=== PATIENT | male | born 1955 | race Two or more races ===

== ENCOUNTER 2020-04-23 16:38 | Inpatient (IN) | payer MEDICAID, OTHER, SELFPAY ==
[~2020-04-23] VITALS: Ht 162.6 cm; Wt 66.0 kg
[2020-04-23] MEDS ORDERED: ASCORBIC ACID 500 MG TAB PO ONE (18:15)
[2020-04-23] MEDS ORDERED: ZINC SULFATE 220mg CAP or TAB PO ONE (18:15)
[2020-04-23] MEDS ORDERED: DexAMETHasone SOD PHOS 10MG/1ML VIAL INJ IV ONE (18:15)
[2020-04-23] MEDS ORDERED: AZITHROMYCIN 500MG/ 250ML 250 ML IV ONE (18:15)
[2020-04-23 18:25] LABS: Basophils # (auto) 0.1 10 ^3/uL (0-0.2); Basophils % (auto) 0.5 % (0.0-2.0); Eosinophils # (auto) 0 10 ^3/uL (0-0.8); Eosinophils % (auto) 0.1 % (0.0-7.0); Hematocrit 44.1 % (41.0-53.0); Hemoglobin 15.3 g/dL (13.5-17.5); Lymphocytes # (auto) 0.7 10 ^3/uL (0.4-5.4); Lymphocytes % (auto) 6.7 % (10.0-50.0); Mean Corpuscular Hemoglobin 31.1 pg (28.0-32.0); Mean Corpuscular Hgb Conc. 34.6 g/dL (32.0-36.0); Mean Corpuscular Volume 89.9 fL (80.0-100.0); Monocytes # (auto) 0.8 10 ^3/uL (0-1.3); Monocytes % (auto) 7.3 % (0.0-12.0); Neutrophils # (auto) 9.2 10 ^3/uL (1.6-8.6); Neutrophils % (auto) 85.4 % (37.0-80.0); Nucleated Red Blood Cells % 0.5 %; Red Blood Cells 4.91 10^6/uL (4.5-5.90); Red Cell Distribution Width 13.1 % (11.8-14.3); White Blood Cell 10.8 10^3/uL (4.4-10.8)
[2020-04-23 18:36] LABS: Albumin 2.6 g/dL (3.4-5.0); Calcium 7.7 mg/dL (8.5-10.1); Potassium 3.6 mmol/L (3.5-5.1)
[2020-04-23 18:38] LABS: INR 1.02 (0.9-1.15); Partial Thromboplastin Time 23.6 sec (23.0-31.2)
[2020-04-23 18:42] LABS: BUN/Creatinine Ratio 19.4; Bilirubin, Total 1.2 mg/dL (0.2-1.0); Total Protein 8.1 g/dL (6.4-8.2)
[2020-04-23] MEDS ORDERED: ACETAMINOPHEN 325 MG TAB PO PRN (19:00)
[2020-04-23 22:38] LABS: Urine Amorphous Crystal FEW /hpf (None Seen); Urine Bacteria NONE SEEN /hpf (None Seen); Urine Blood 2+ /uL (Negative); Urine Mucus FEW (None Seen); Urine Specific Gravity 1.031 (1.001-1.035); Urine WBC 4 /hpf (0 - 3)
[2020-04-24] MEDS ORDERED: ONDANSETRON HCL 4 MG/2 ML VIAL IV PRN (02:30)
[2020-04-24] MEDS ORDERED: DOCUSATE SOD 100 MG CAP PO PRN (02:30)
[2020-04-24] MEDS ORDERED: ACETAMINOPHEN 500 MG TAB PO PRN (02:30)
[2020-04-24] MEDS ORDERED: MORPHINE SULFATE INJECTION 2 MG/ML SYRG IV PRN (02:30)
[2020-04-24] MEDS ORDERED: NITROGLYCERIN 0.4 MG SL TAB SL PRN (02:30)
[2020-04-24] MEDS: SODIUM CHLOR 0.9% PF (SALINE LOCK) 10ML VIAL/SYR IV SCH ×3 (06:03→21:40)
[2020-04-24 08:20] LABS: Basophils # (auto) 0 10 ^3/uL (0-0.2); Basophils % (auto) 0.1 % (0.0-2.0); Eosinophils # (auto) 0 10 ^3/uL (0-0.8); Hemoglobin 13.9 g/dL (13.5-17.5); Lymphocytes # (auto) 0.6 10 ^3/uL (0.4-5.4); Lymphocytes % (auto) 6.9 % (10.0-50.0); Mean Corpuscular Hemoglobin 30.5 pg (28.0-32.0); Mean Corpuscular Hgb Conc. 33.8 g/dL (32.0-36.0); Mean Corpuscular Volume 90.3 fL (80.0-100.0); Monocytes # (auto) 0.7 10 ^3/uL (0-1.3); Monocytes % (auto) 7.2 % (0.0-12.0); Neutrophils # (auto) 7.9 10 ^3/uL (1.6-8.6); Neutrophils % (auto) 85.8 % (37.0-80.0); Nucleated Red Blood Cells % 0.1 %; Red Blood Cells 4.54 10^6/uL (4.5-5.90); White Blood Cell 9.2 10^3/uL (4.4-10.8)
[2020-04-24 08:33] LABS: Potassium 3.7 mmol/L (3.5-5.1)
[2020-04-24 08:37] LABS: Albumin 2.3 g/dL (3.4-5.0); BUN/Creatinine Ratio 26.3; Calcium 7.7 mg/dL (8.5-10.1); Magnesium 2.5 mg/dL (1.6-2.6)
[2020-04-24 08:39] LABS: Bilirubin, Total 0.9 mg/dL (0.2-1.0)
[2020-04-24] MEDS: BUDESONIDE (INHALATION) 180 MCG IH IN SCH ×2 (10:00→21:30)
[2020-04-24] MEDS: MULTIPLE VITAMIN TAB PO SCH (10:00)
[2020-04-24] MEDS: AZITHROMYCIN 500MG/D5WorNS 250ml IV SCH (10:08)
[2020-04-24] MEDS: CHOLECALCIFEROL (VITD3) 2,000 UNIT CAP/TAB PO SCH (10:08)
[2020-04-24] MEDS: ZINC SULFATE 220mg CAP or TAB PO SCH (10:08)
[2020-04-24] MEDS: DexAMETHasone SOD PHOS 10MG/1ML VIAL INJ IV SCH (10:08)
[2020-04-24] MEDS: ASCORBIC ACID 1,000 MG TAB PO SCH (10:08)
[2020-04-24] MEDS: ENOXAPARIN SOD 40 MG/0.4 ML SYRINGE SC SCH (10:08)
[2020-04-24] MEDS: FAMOTIDINE (10MG/ML) 2ML VL IV SCH ×2 (10:09→21:45)
[2020-04-24] MEDS: ALBUTEROL SULF HFA 90MCG INH 200DOSE IN PRN (21:30)
[2020-04-25] MEDS: SODIUM CHLOR 0.9% PF (SALINE LOCK) 10ML VIAL/SYR IV SCH ×3 (05:43→21:34)
[2020-04-25 06:30] LABS: Basophils # (auto) 0 10 ^3/uL (0-0.2); Basophils % (auto) 0.2 % (0.0-2.0); Eosinophils # (auto) 0 10 ^3/uL (0-0.8); Hematocrit 39.6 % (41.0-53.0); Hemoglobin 13.4 g/dL (13.5-17.5); Lymphocytes # (auto) 0.7 10 ^3/uL (0.4-5.4); Lymphocytes % (auto) 5.8 % (10.0-50.0); Mean Corpuscular Hemoglobin 30.8 pg (28.0-32.0); Mean Corpuscular Hgb Conc. 33.9 g/dL (32.0-36.0); Mean Corpuscular Volume 90.7 fL (80.0-100.0); Monocytes # (auto) 0.8 10 ^3/uL (0-1.3); Monocytes % (auto) 7.3 % (0.0-12.0); Neutrophils % (auto) 86.7 % (37.0-80.0); Red Blood Cells 4.36 10^6/uL (4.5-5.90); Red Cell Distribution Width 13.3 % (11.8-14.3); White Blood Cell 11.6 10^3/uL (4.4-10.8)
[2020-04-25] MEDS: BUDESONIDE (INHALATION) 180 MCG IH IN SCH ×2 (06:30→22:00)
[2020-04-25] MEDS: ALBUTEROL SULF HFA 90MCG INH 200DOSE IN PRN (06:30)
[2020-04-25 06:53] LABS: Albumin 2.2 g/dL (3.4-5.0); Calcium 7.8 mg/dL (8.5-10.1); Potassium 3.9 mmol/L (3.5-5.1)
[2020-04-25 06:59] LABS: BUN/Creatinine Ratio 32.1; Bilirubin, Total 0.7 mg/dL (0.2-1.0); Total Protein 6.9 g/dL (6.4-8.2)
[2020-04-25] MEDS: DexAMETHasone SOD PHOS 10MG/1ML VIAL INJ IV SCH (09:48)
[2020-04-25] MEDS: AZITHROMYCIN 500MG/D5WorNS 250ml IV SCH (09:48)
[2020-04-25] MEDS: CHOLECALCIFEROL (VITD3) 2,000 UNIT CAP/TAB PO SCH (09:49)
[2020-04-25] MEDS: ZINC SULFATE 220mg CAP or TAB PO SCH (09:49)
[2020-04-25] MEDS: MULTIPLE VITAMIN TAB PO SCH (09:49)
[2020-04-25] MEDS: FAMOTIDINE (10MG/ML) 2ML VL IV SCH ×2 (09:49→21:34)
[2020-04-25] MEDS: ASCORBIC ACID 1,000 MG TAB PO SCH (09:49)
[2020-04-25] MEDS: ENOXAPARIN SOD 40 MG/0.4 ML SYRINGE SC SCH (09:49)
[2020-04-25] MEDS ORDERED: REMDESIVIR PER PHARMACY 0 ML IV SCH (19:00)
[2020-04-25] MEDS ORDERED: cefTRIAXone 1GM/50ML D5W 50 ML IV ONE (19:00)
[2020-04-25] MEDS: ENOXAPARIN SOD 30 MG/0.3 ML SYRINGE SC SCH (21:34)
[2020-04-25] MEDS ORDERED: REMDESIVIR 200 MG in NS 210ml LOADING DOSE ADULT IV ONE (22:00)
[2020-04-26] MEDS: SODIUM CHLOR 0.9% PF (SALINE LOCK) 10ML VIAL/SYR IV SCH ×3 (05:57→22:19)
[2020-04-26 06:50] LABS: Basophils # (auto) 0 10 ^3/uL (0-0.2); Basophils % (auto) 0.1 % (0.0-2.0); Eosinophils # (auto) 0 10 ^3/uL (0-0.8); Hematocrit 39.5 % (41.0-53.0); Hemoglobin 13.6 g/dL (13.5-17.5); Lymphocytes # (auto) 0.9 10 ^3/uL (0.4-5.4); Lymphocytes % (auto) 9.2 % (10.0-50.0); Mean Corpuscular Hemoglobin 31.2 pg (28.0-32.0); Mean Corpuscular Hgb Conc. 34.4 g/dL (32.0-36.0); Mean Corpuscular Volume 90.7 fL (80.0-100.0); Monocytes # (auto) 0.5 10 ^3/uL (0-1.3); Monocytes % (auto) 5.1 % (0.0-12.0); Neutrophils # (auto) 8.1 10 ^3/uL (1.6-8.6); Neutrophils % (auto) 85.6 % (37.0-80.0); Nucleated Red Blood Cells % 0.1 %; Red Blood Cells 4.36 10^6/uL (4.5-5.90); Red Cell Distribution Width 13.4 % (11.8-14.3); White Blood Cell 9.5 10^3/uL (4.4-10.8)
[2020-04-26 07:04] LABS: Albumin 2.1 g/dL (3.4-5.0); Calcium 7.7 mg/dL (8.5-10.1); Magnesium 2.8 mg/dL (1.6-2.6); Potassium 3.8 mmol/L (3.5-5.1)
[2020-04-26 07:18] LABS: Bilirubin, Total 0.6 mg/dL (0.2-1.0); CRP High Sensitivity 6.7 mg/dL (< 0.3); Total Protein 6.8 g/dL (6.4-8.2)
[2020-04-26] MEDS: DexAMETHasone SOD PHOS 10MG/1ML VIAL INJ IV SCH (09:14)
[2020-04-26] MEDS: cefTRIAXone 1GM/50ML D5W 50 ML IV SCH (09:14)
[2020-04-26] MEDS: ASCORBIC ACID 1,000 MG TAB PO SCH (09:15)
[2020-04-26] MEDS: ZINC SULFATE 220mg CAP or TAB PO SCH (09:15)
[2020-04-26] MEDS: AZITHROMYCIN 500MG/D5WorNS 250ml IV SCH (09:15)
[2020-04-26] MEDS: CHOLECALCIFEROL (VITD3) 2,000 UNIT CAP/TAB PO SCH (09:15)
[2020-04-26] MEDS: MULTIPLE VITAMIN TAB PO SCH (09:15)
[2020-04-26] MEDS: ENOXAPARIN SOD 30 MG/0.3 ML SYRINGE SC SCH (09:15)
[2020-04-26] MEDS: FAMOTIDINE (10MG/ML) 2ML VL IV SCH ×2 (09:15→22:19)
[2020-04-26] MEDS ORDERED: ENOXAPARIN SOD 80 MG/0.8ML SYRINGE SC ONE (11:00)
[2020-04-26] MEDS: ERGOCALCIFEROL 50,000 UNIT(1.25MG) CAP PO SCH (11:52)
[2020-04-26] MEDS: REMDESIVIR 100 MG in SODIUM CHL 0.9% 250 ML IV SCH (18:08)
[2020-04-26] MEDS: BUDESONIDE (INHALATION) 180 MCG IH IN SCH ×2 (20:51→22:00)
[2020-04-26] MEDS: ENOXAPARIN SOD 80 MG/0.8ML SYRINGE SC SCH (22:19)
[2020-04-26 23:20] VITALS: BP 124/66
[2020-04-27 06:00] VITALS: BP 139/78
[2020-04-27] MEDS: SODIUM CHLOR 0.9% PF (SALINE LOCK) 10ML VIAL/SYR IV SCH ×3 (06:14→21:38)
[2020-04-27 07:41] LABS: Albumin 2.4 g/dL (3.4-5.0); BUN/Creatinine Ratio 40.6
[2020-04-27 07:44] LABS: Bilirubin, Total 0.9 mg/dL (0.2-1.0); Total Protein 7.1 g/dL (6.4-8.2)
[2020-04-27 09:00] VITALS: BP 145/77
[2020-04-27] MEDS: ZINC SULFATE 220mg CAP or TAB PO SCH (11:00)
[2020-04-27] MEDS: FAMOTIDINE (10MG/ML) 2ML VL IV SCH ×2 (11:00→21:38)
[2020-04-27] MEDS: ASCORBIC ACID 1,000 MG TAB PO SCH (11:00)
[2020-04-27] MEDS: MULTIPLE VITAMIN TAB PO SCH (11:00)
[2020-04-27] MEDS: BUDESONIDE (INHALATION) 180 MCG IH IN SCH ×2 (11:00→19:08)
[2020-04-27] MEDS: cefTRIAXone 1GM/50ML D5W 50 ML IV SCH (11:00)
[2020-04-27] MEDS: CHOLECALCIFEROL (VITD3) 2,000 UNIT CAP/TAB PO SCH (11:00)
[2020-04-27] MEDS: DexAMETHasone SOD PHOS 10MG/1ML VIAL INJ IV SCH (11:00)
[2020-04-27] MEDS: ENOXAPARIN SOD 80 MG/0.8ML SYRINGE SC SCH ×2 (11:00→21:38)
[2020-04-27] MEDS: AZITHROMYCIN 500MG/D5WorNS 250ml IV SCH (12:24)
[2020-04-27 13:00] VITALS: BP 129/81
[2020-04-27] MEDS: REMDESIVIR 100 MG in SODIUM CHL 0.9% 250 ML IV SCH (15:25)
[2020-04-27 17:00] VITALS: BP 109/69
[2020-04-27] MEDS: ALBUTEROL SULF HFA 90MCG INH 200DOSE IN PRN (19:08)
[2020-04-27 21:00] VITALS: BP 125/80
[2020-04-28] MEDS: SODIUM CHLOR 0.9% PF (SALINE LOCK) 10ML VIAL/SYR IV SCH ×3 (06:04→21:37)
[2020-04-28] MEDS: ALBUTEROL SULF HFA 90MCG INH 200DOSE IN PRN (06:23)
[2020-04-28] MEDS: BUDESONIDE (INHALATION) 180 MCG IH IN SCH ×2 (06:23→21:38)
[2020-04-28 06:44] LABS: Basophils # (auto) 0 10 ^3/uL (0-0.2); Basophils % (auto) 0.1 % (0.0-2.0); Eosinophils # (auto) 0 10 ^3/uL (0-0.8); Eosinophils % (auto) 0.5 % (0.0-7.0); Hematocrit 43.1 % (41.0-53.0); Hemoglobin 14.7 g/dL (13.5-17.5); Mean Corpuscular Hemoglobin 31.1 pg (28.0-32.0); Mean Corpuscular Volume 91.4 fL (80.0-100.0); Monocytes # (auto) 0.4 10 ^3/uL (0-1.3); Monocytes % (auto) 3.9 % (0.0-12.0); Neutrophils # (auto) 8.2 10 ^3/uL (1.6-8.6); Neutrophils % (auto) 85.5 % (37.0-80.0); Nucleated Red Blood Cells % 0.1 %; Red Blood Cells 4.72 10^6/uL (4.5-5.90); Red Cell Distribution Width 13.2 % (11.8-14.3); White Blood Cell 9.5 10^3/uL (4.4-10.8)
[2020-04-28 06:53] LABS: Potassium 4.2 mmol/L (3.5-5.1)
[2020-04-28 07:08] LABS: Albumin 2.1 g/dL (3.4-5.0); BUN/Creatinine Ratio 37.5; Bilirubin, Total 0.8 mg/dL (0.2-1.0); Total Protein 6.9 g/dL (6.4-8.2)
[2020-04-28 08:00] VITALS: BP 134/73
[2020-04-28] MEDS: DexAMETHasone SOD PHOS 10MG/1ML VIAL INJ IV SCH (11:01)
[2020-04-28] MEDS: FAMOTIDINE (10MG/ML) 2ML VL IV SCH ×2 (11:01→21:37)
[2020-04-28] MEDS: cefTRIAXone 1GM/50ML D5W 50 ML IV SCH (11:01)
[2020-04-28] MEDS: ASCORBIC ACID 1,000 MG TAB PO SCH (11:02)
[2020-04-28] MEDS: ZINC SULFATE 220mg CAP or TAB PO SCH (11:02)
[2020-04-28] MEDS: CHOLECALCIFEROL (VITD3) 2,000 UNIT CAP/TAB PO SCH (11:02)
[2020-04-28] MEDS: MULTIPLE VITAMIN TAB PO SCH (11:02)
[2020-04-28] MEDS: AZITHROMYCIN 500MG/D5WorNS 250ml IV SCH (11:02)
[2020-04-28] MEDS: ENOXAPARIN SOD 80 MG/0.8ML SYRINGE SC SCH ×2 (11:03→21:37)
[2020-04-28 16:00] VITALS: BP 117/68
[2020-04-28] MEDS: REMDESIVIR 100 MG in SODIUM CHL 0.9% 250 ML IV SCH (16:35)
[2020-04-28 22:00] VITALS: BP 127/76
[2020-04-29 05:00] VITALS: BP 147/89
[2020-04-29] MEDS: SODIUM CHLOR 0.9% PF (SALINE LOCK) 10ML VIAL/SYR IV SCH ×3 (05:15→21:30)
[2020-04-29] MEDS: HYDROcodone-ACET 5/325MG TAB PO PRN ×2 (05:16→21:31)
[2020-04-29 06:47] LABS: Potassium 3.8 mmol/L (3.5-5.1)
[2020-04-29 06:59] LABS: Albumin 2.2 g/dL (3.4-5.0); BUN/Creatinine Ratio 39.7; Bilirubin, Total 0.7 mg/dL (0.2-1.0); Calcium 7.9 mg/dL (8.5-10.1); Total Protein 7.2 g/dL (6.4-8.2)
[2020-04-29 08:00] VITALS: BP 130/70
[2020-04-29] MEDS: cefTRIAXone 1GM/50ML D5W 50 ML IV SCH (09:15)
[2020-04-29] MEDS: FAMOTIDINE (10MG/ML) 2ML VL IV SCH ×2 (11:00→21:30)
[2020-04-29] MEDS: ENOXAPARIN SOD 80 MG/0.8ML SYRINGE SC SCH (11:01)
[2020-04-29] MEDS: DexAMETHasone SOD PHOS 10MG/1ML VIAL INJ IV SCH (11:02)
[2020-04-29] MEDS: MULTIPLE VITAMIN TAB PO SCH (11:03)
[2020-04-29] MEDS: ASCORBIC ACID 1,000 MG TAB PO SCH (11:03)
[2020-04-29] MEDS: ZINC SULFATE 220mg CAP or TAB PO SCH (11:03)
[2020-04-29] MEDS: CHOLECALCIFEROL (VITD3) 2,000 UNIT CAP/TAB PO SCH (11:03)
[2020-04-29] MEDS ORDERED: IOHEXOL 350 MG/ML 100ML IJ ONE (11:40)
[2020-04-29] MEDS: REMDESIVIR 100 MG in SODIUM CHL 0.9% 250 ML IV SCH (15:48)
[2020-04-29 16:00] VITALS: BP 108/70
[2020-04-29 18:33] LABS: INR 1.21 (0.9-1.15); Partial Thromboplastin Time 30.5 sec (23.0-31.2)
[2020-04-29] MEDS: BUDESONIDE (INHALATION) 180 MCG IH IN SCH ×2 (21:31→21:32)
[2020-04-29 23:14] VITALS: BP 113/79
[2020-04-29 23:21] VITALS: BP 117/76
[2020-04-29 23:41] VITALS: BP 104/64
[2020-04-30] VITALS: BP 121/71
[2020-04-30 00:37] VITALS: BP 102/67
[2020-04-30 01:00] VITALS: BP 113/67
[2020-04-30 05:11] VITALS: BP 127/74
[2020-04-30 06:05] LABS: Basophils # (auto) 0 10 ^3/uL (0-0.2); Basophils % (auto) 0.1 % (0.0-2.0); Eosinophils # (auto) 0 10 ^3/uL (0-0.8); Eosinophils % (auto) 0.2 % (0.0-7.0); Hematocrit 41.2 % (41.0-53.0); Hemoglobin 14.1 g/dL (13.5-17.5); Lymphocytes # (auto) 1.1 10 ^3/uL (0.4-5.4); Lymphocytes % (auto) 7.7 % (10.0-50.0); Mean Corpuscular Hgb Conc. 34.3 g/dL (32.0-36.0); Mean Corpuscular Volume 90.5 fL (80.0-100.0); Monocytes # (auto) 0.6 10 ^3/uL (0-1.3); Monocytes % (auto) 4.6 % (0.0-12.0); Neutrophils % (auto) 87.4 % (37.0-80.0); Red Blood Cells 4.56 10^6/uL (4.5-5.90); Red Cell Distribution Width 13.3 % (11.8-14.3); White Blood Cell 13.7 10^3/uL (4.4-10.8)
[2020-04-30 06:23] LABS: Albumin 2.2 g/dL (3.4-5.0); Potassium 3.9 mmol/L (3.5-5.1)
[2020-04-30 06:37] LABS: BUN/Creatinine Ratio 47.1; Bilirubin, Total 0.6 mg/dL (0.2-1.0); CRP High Sensitivity 6.96 mg/dL (< 0.3); Total Protein 6.9 g/dL (6.4-8.2)
[2020-04-30] MEDS: SODIUM CHLOR 0.9% PF (SALINE LOCK) 10ML VIAL/SYR IV SCH ×3 (06:40→21:18)
[2020-04-30 08:00] VITALS: BP 122/73
[2020-04-30] MEDS: cefTRIAXone 1GM/50ML D5W 50 ML IV SCH (08:42)
[2020-04-30] MEDS: ZINC SULFATE 220mg CAP or TAB PO SCH (10:15)
[2020-04-30] MEDS: MULTIPLE VITAMIN TAB PO SCH (10:15)
[2020-04-30] MEDS: FAMOTIDINE (10MG/ML) 2ML VL IV SCH ×2 (10:15→21:17)
[2020-04-30] MEDS: ASCORBIC ACID 1,000 MG TAB PO SCH (10:15)
[2020-04-30] MEDS: DexAMETHasone SOD PHOS 10MG/1ML VIAL INJ IV SCH (10:15)
[2020-04-30] MEDS: CHOLECALCIFEROL (VITD3) 2,000 UNIT CAP/TAB PO SCH (10:16)
[2020-04-30] MEDS: BUDESONIDE (INHALATION) 180 MCG IH IN SCH ×2 (12:58→22:30)
[2020-04-30 16:00] VITALS: BP 119/71
[2020-04-30] MEDS: ENOXAPARIN SOD 40 MG/0.4 ML SYRINGE SC SCH (21:18)
[2020-04-30] MEDS: ALBUTEROL SULF HFA 90MCG INH 200DOSE IN PRN (22:30)
[2020-05-01] VITALS: BP 122/77
[2020-05-01] MEDS: SODIUM CHLOR 0.9% PF (SALINE LOCK) 10ML VIAL/SYR IV SCH ×3 (05:06→21:14)
[2020-05-01 08:00] VITALS: BP 120/82
[2020-05-01] MEDS: cefTRIAXone 1GM/50ML D5W 50 ML IV SCH (08:21)
[2020-05-01] MEDS: BUDESONIDE (INHALATION) 180 MCG IH IN SCH ×2 (10:00→19:20)
[2020-05-01] MEDS: ENOXAPARIN SOD 40 MG/0.4 ML SYRINGE SC SCH ×2 (10:23→21:13)
[2020-05-01] MEDS: FAMOTIDINE (10MG/ML) 2ML VL IV SCH ×2 (10:24→21:13)
[2020-05-01] MEDS: CHOLECALCIFEROL (VITD3) 2,000 UNIT CAP/TAB PO SCH (10:24)
[2020-05-01] MEDS: MULTIPLE VITAMIN TAB PO SCH (10:24)
[2020-05-01] MEDS: ASCORBIC ACID 1,000 MG TAB PO SCH (10:24)
[2020-05-01] MEDS: ZINC SULFATE 220mg CAP or TAB PO SCH (10:24)
[2020-05-01] MEDS: DexAMETHasone SOD PHOS 10MG/1ML VIAL INJ IV SCH (10:24)
[2020-05-01 16:07] VITALS: BP 122/78
[2020-05-01] MEDS: ALBUTEROL SULF HFA 90MCG INH 200DOSE IN PRN (19:20)
[2020-05-01] MEDS: FLORASTOR (S. BOULARDII) 250 MG CAP PO SCH (21:13)
[2020-05-02] VITALS: BP 121/70
[2020-05-02 05:59] LABS: Basophils # (auto) 0 10 ^3/uL (0-0.2); Basophils % (auto) 0.1 % (0.0-2.0); Eosinophils # (auto) 0 10 ^3/uL (0-0.8); Eosinophils % (auto) 0.3 % (0.0-7.0); Hematocrit 38.9 % (41.0-53.0); Hemoglobin 13.3 g/dL (13.5-17.5); Lymphocytes # (auto) 1.4 10 ^3/uL (0.4-5.4); Lymphocytes % (auto) 9.1 % (10.0-50.0); Mean Corpuscular Hemoglobin 30.8 pg (28.0-32.0); Mean Corpuscular Hgb Conc. 34.3 g/dL (32.0-36.0); Mean Corpuscular Volume 89.9 fL (80.0-100.0); Monocytes # (auto) 1.3 10 ^3/uL (0-1.3); Monocytes % (auto) 8.2 % (0.0-12.0); Neutrophils # (auto) 12.7 10 ^3/uL (1.6-8.6); Neutrophils % (auto) 82.3 % (37.0-80.0); Red Blood Cells 4.32 10^6/uL (4.5-5.90); Red Cell Distribution Width 13.1 % (11.8-14.3); White Blood Cell 15.4 10^3/uL (4.4-10.8)
[2020-05-02 06:19] LABS: Albumin 2.3 g/dL (3.4-5.0); Potassium 3.7 mmol/L (3.5-5.1)
[2020-05-02] MEDS: SODIUM CHLOR 0.9% PF (SALINE LOCK) 10ML VIAL/SYR IV SCH ×3 (06:23→21:53)
[2020-05-02 06:26] LABS: BUN/Creatinine Ratio 35.7; Bilirubin, Total 0.6 mg/dL (0.2-1.0); Total Protein 6.3 g/dL (6.4-8.2)
[2020-05-02] MEDS: ALBUTEROL SULF HFA 90MCG INH 200DOSE IN PRN ×2 (07:38→19:00)
[2020-05-02 08:00] VITALS: BP 119/70
[2020-05-02] MEDS: cefTRIAXone 1GM/50ML D5W 50 ML IV SCH (08:37)
[2020-05-02] MEDS: DexAMETHasone SOD PHOS 10MG/1ML VIAL INJ IV SCH (08:39)
[2020-05-02] MEDS: BUDESONIDE (INHALATION) 180 MCG IH IN SCH ×2 (08:39→19:00)
[2020-05-02] MEDS: ZINC SULFATE 220mg CAP or TAB PO SCH (08:40)
[2020-05-02] MEDS: FAMOTIDINE (10MG/ML) 2ML VL IV SCH ×2 (08:40→21:53)
[2020-05-02] MEDS: ENOXAPARIN SOD 40 MG/0.4 ML SYRINGE SC SCH ×3 (08:41→21:53)
[2020-05-02] MEDS: MULTIPLE VITAMIN TAB PO SCH (08:41)
[2020-05-02] MEDS: CHOLECALCIFEROL (VITD3) 2,000 UNIT CAP/TAB PO SCH (08:41)
[2020-05-02] MEDS: ASCORBIC ACID 1,000 MG TAB PO SCH (08:41)
[2020-05-02] MEDS: FLORASTOR (S. BOULARDII) 250 MG CAP PO SCH ×2 (16:00→21:53)
[2020-05-02 16:28] VITALS: BP 114/69
[2020-05-03] VITALS: BP 120/70
[2020-05-03] MEDS: SODIUM CHLOR 0.9% PF (SALINE LOCK) 10ML VIAL/SYR IV SCH ×3 (05:58→21:31)
[2020-05-03] MEDS: BUDESONIDE (INHALATION) 180 MCG IH IN SCH ×2 (07:33→19:02)
[2020-05-03 08:00] VITALS: BP 123/70
[2020-05-03] MEDS: FAMOTIDINE (10MG/ML) 2ML VL IV SCH ×2 (09:19→21:31)
[2020-05-03] MEDS: DexAMETHasone SOD PHOS 10MG/1ML VIAL INJ IV SCH (09:19)
[2020-05-03] MEDS: cefTRIAXone 1GM/50ML D5W 50 ML IV SCH (09:19)
[2020-05-03] MEDS: FLORASTOR (S. BOULARDII) 250 MG CAP PO SCH ×2 (09:20→21:31)
[2020-05-03] MEDS: ASCORBIC ACID 1,000 MG TAB PO SCH (09:20)
[2020-05-03] MEDS: ZINC SULFATE 220mg CAP or TAB PO SCH (09:20)
[2020-05-03] MEDS: MULTIPLE VITAMIN TAB PO SCH (09:20)
[2020-05-03] MEDS: CHOLECALCIFEROL (VITD3) 2,000 UNIT CAP/TAB PO SCH (09:20)
[2020-05-03] MEDS: ENOXAPARIN SOD 40 MG/0.4 ML SYRINGE SC SCH ×2 (09:21→21:31)
[2020-05-03] MEDS: HYDROcodone-ACET 5/325MG TAB PO PRN (09:40)
[2020-05-03] MEDS: VANCOMYCIN HCL 125MG/5ML ORAL SOL PO SCH ×3 (13:11→21:31)
[2020-05-03] MEDS: ERGOCALCIFEROL 50,000 UNIT(1.25MG) CAP PO SCH (13:16)
[2020-05-03 16:00] VITALS: BP 121/76
[2020-05-03] MEDS: ALBUTEROL SULF HFA 90MCG INH 200DOSE IN PRN (19:08)
[2020-05-04] VITALS: BP 112/72
[2020-05-04] MEDS: SODIUM CHLOR 0.9% PF (SALINE LOCK) 10ML VIAL/SYR IV SCH ×3 (05:39→22:51)
[2020-05-04] MEDS: VANCOMYCIN HCL 125MG/5ML ORAL SOL PO SCH ×4 (05:40→22:51)
[2020-05-04 08:00] VITALS: BP 92/54
[2020-05-04] MEDS: ALBUTEROL SULF HFA 90MCG INH 200DOSE IN PRN ×2 (09:00→19:40)
[2020-05-04] MEDS: BUDESONIDE (INHALATION) 180 MCG IH IN SCH ×2 (09:00→19:39)
[2020-05-04] MEDS: DexAMETHasone SOD PHOS 10MG/1ML VIAL INJ IV SCH (09:53)
[2020-05-04] MEDS: FLORASTOR (S. BOULARDII) 250 MG CAP PO SCH ×2 (09:54→22:51)
[2020-05-04] MEDS: ZINC SULFATE 220mg CAP or TAB PO SCH (09:54)
[2020-05-04] MEDS: FAMOTIDINE (10MG/ML) 2ML VL IV SCH ×2 (09:54→22:51)
[2020-05-04] MEDS: ASCORBIC ACID 1,000 MG TAB PO SCH (09:54)
[2020-05-04] MEDS: MULTIPLE VITAMIN TAB PO SCH (09:54)
[2020-05-04] MEDS: CHOLECALCIFEROL (VITD3) 2,000 UNIT CAP/TAB PO SCH (09:54)
[2020-05-04] MEDS: ENOXAPARIN SOD 40 MG/0.4 ML SYRINGE SC SCH ×2 (10:00→22:51)
[2020-05-04 16:00] VITALS: BP 105/71
[2020-05-05] VITALS: BP 115/61
[2020-05-05] MEDS: VANCOMYCIN HCL 125MG/5ML ORAL SOL PO SCH ×4 (05:55→21:01)
[2020-05-05] MEDS: SODIUM CHLOR 0.9% PF (SALINE LOCK) 10ML VIAL/SYR IV SCH ×3 (05:55→21:01)
[2020-05-05 08:00] VITALS: BP 111/63
[2020-05-05] MEDS: FAMOTIDINE (10MG/ML) 2ML VL IV SCH ×2 (09:00→21:01)
[2020-05-05] MEDS: CHOLECALCIFEROL (VITD3) 2,000 UNIT CAP/TAB PO SCH (09:00)
[2020-05-05] MEDS: FLORASTOR (S. BOULARDII) 250 MG CAP PO SCH ×2 (09:00→21:01)
[2020-05-05] MEDS: DexAMETHasone SOD PHOS 10MG/1ML VIAL INJ IV SCH (09:00)
[2020-05-05] MEDS: MULTIPLE VITAMIN TAB PO SCH (09:00)
[2020-05-05] MEDS: ZINC SULFATE 220mg CAP or TAB PO SCH (09:00)
[2020-05-05] MEDS: ASCORBIC ACID 1,000 MG TAB PO SCH (09:00)
[2020-05-05] MEDS: ENOXAPARIN SOD 40 MG/0.4 ML SYRINGE SC SCH ×2 (10:00→21:02)
[2020-05-05] MEDS: metroNIDAZOLE 500 MG TAB PO SCH ×2 (14:00→21:01)
[2020-05-05 16:29] VITALS: BP 112/64
[2020-05-05] MEDS: BUDESONIDE (INHALATION) 180 MCG IH IN SCH (20:31)
[2020-05-05] MEDS: ALBUTEROL SULF HFA 90MCG INH 200DOSE IN PRN (20:32)
[2020-05-06] VITALS: BP 107/73
[2020-05-06] MEDS: metroNIDAZOLE 500 MG TAB PO SCH ×3 (05:53→21:22)
[2020-05-06] MEDS: VANCOMYCIN HCL 125MG/5ML ORAL SOL PO SCH ×4 (05:53→21:21)
[2020-05-06] MEDS: SODIUM CHLOR 0.9% PF (SALINE LOCK) 10ML VIAL/SYR IV SCH ×3 (05:53→21:21)
[2020-05-06 06:14] LABS: Basophils # (auto) 0 10 ^3/uL (0-0.2); Basophils % (auto) 0.2 % (0.0-2.0); Neutrophils # (auto) 10.2 10 ^3/uL (1.6-8.6); Nucleated Red Blood Cells % 0.1 %
[2020-05-06 06:17] LABS: Eosinophils # (auto) 0 10 ^3/uL (0-0.8); Eosinophils % (auto) 0.2 % (0.0-7.0); Lymphocytes # (auto) 2.3 10 ^3/uL (0.4-5.4); Lymphocytes % (auto) 17.2 % (10.0-50.0); Mean Corpuscular Hemoglobin 31.6 pg (28.0-32.0); Mean Corpuscular Hgb Conc. 35.4 g/dL (32.0-36.0); Mean Corpuscular Volume 89.2 fL (80.0-100.0); Monocytes % (auto) 7.5 % (0.0-12.0); Neutrophils % (auto) 74.9 % (37.0-80.0); Red Blood Cells 3.81 10^6/uL (4.5-5.90); White Blood Cell 13.6 10^3/uL (4.4-10.8)
[2020-05-06 06:41] LABS: Potassium 4.1 mmol/L (3.5-5.1)
[2020-05-06] MEDS: BUDESONIDE (INHALATION) 180 MCG IH IN SCH ×2 (06:44→20:00)
[2020-05-06] MEDS: ALBUTEROL SULF HFA 90MCG INH 200DOSE IN PRN ×2 (06:44→20:00)
[2020-05-06 06:47] LABS: BUN/Creatinine Ratio 23.7
[2020-05-06 08:00] VITALS: BP 113/64
[2020-05-06] MEDS: ZINC SULFATE 220mg CAP or TAB PO SCH (10:00)
[2020-05-06] MEDS: ENOXAPARIN SOD 40 MG/0.4 ML SYRINGE SC SCH ×2 (10:19→21:22)
[2020-05-06] MEDS: FAMOTIDINE (10MG/ML) 2ML VL IV SCH ×2 (10:19→21:20)
[2020-05-06] MEDS: ASCORBIC ACID 1,000 MG TAB PO SCH (10:20)
[2020-05-06] MEDS: MULTIPLE VITAMIN TAB PO SCH (10:20)
[2020-05-06] MEDS: FLORASTOR (S. BOULARDII) 250 MG CAP PO SCH ×2 (10:20→21:22)
[2020-05-06] MEDS: CHOLECALCIFEROL (VITD3) 2,000 UNIT CAP/TAB PO SCH (10:20)
[2020-05-06 16:00] VITALS: BP 102/65
[2020-05-07] VITALS: BP 97/59
[2020-05-07] MEDS: metroNIDAZOLE 500 MG TAB PO SCH (05:31)
[2020-05-07] MEDS: VANCOMYCIN HCL 125MG/5ML ORAL SOL PO SCH ×4 (05:32→21:22)
[2020-05-07] MEDS: SODIUM CHLOR 0.9% PF (SALINE LOCK) 10ML VIAL/SYR IV SCH ×3 (05:32→21:29)
[2020-05-07] MEDS: BUDESONIDE (INHALATION) 180 MCG IH IN SCH ×2 (07:50→22:00)
[2020-05-07] MEDS: ALBUTEROL SULF HFA 90MCG INH 200DOSE IN PRN (07:50)
[2020-05-07 08:00] VITALS: BP 136/56
[2020-05-07] MEDS: FAMOTIDINE (10MG/ML) 2ML VL IV SCH ×2 (09:07→21:29)
[2020-05-07] MEDS: ENOXAPARIN SOD 40 MG/0.4 ML SYRINGE SC SCH ×2 (09:07→21:29)
[2020-05-07] MEDS: ZINC SULFATE 220mg CAP or TAB PO SCH (09:08)
[2020-05-07] MEDS: ASCORBIC ACID 1,000 MG TAB PO SCH (09:08)
[2020-05-07] MEDS: CHOLECALCIFEROL (VITD3) 2,000 UNIT CAP/TAB PO SCH (09:08)
[2020-05-07] MEDS: MULTIPLE VITAMIN TAB PO SCH (09:08)
[2020-05-07] MEDS: FLORASTOR (S. BOULARDII) 250 MG CAP PO SCH ×2 (09:08→21:22)
[2020-05-07] MEDS ORDERED: HYOSCYAMINE SULF 0.125 MG ODT TAB PO PRN (12:00)
[2020-05-07] MEDS: metroNIDAZOLE 500MG/100ML 100 ML IV SCH ×2 (13:22→21:23)
[2020-05-07 16:00] VITALS: BP 95/59
[2020-05-08] VITALS: BP 108/58
[2020-05-08] MEDS: metroNIDAZOLE 500MG/100ML 100 ML IV SCH ×3 (05:38→21:49)
[2020-05-08] MEDS: VANCOMYCIN HCL 125MG/5ML ORAL SOL PO SCH ×4 (05:38→21:50)
[2020-05-08] MEDS: SODIUM CHLOR 0.9% PF (SALINE LOCK) 10ML VIAL/SYR IV SCH ×3 (05:38→21:49)
[2020-05-08 08:00] VITALS: BP 108/61
[2020-05-08] MEDS: ZINC SULFATE 220mg CAP or TAB PO SCH (09:40)
[2020-05-08] MEDS: FAMOTIDINE (10MG/ML) 2ML VL IV SCH ×2 (09:40→21:49)
[2020-05-08] MEDS: ENOXAPARIN SOD 40 MG/0.4 ML SYRINGE SC SCH ×2 (09:40→21:50)
[2020-05-08] MEDS: ASCORBIC ACID 1,000 MG TAB PO SCH (09:40)
[2020-05-08] MEDS: FLORASTOR (S. BOULARDII) 250 MG CAP PO SCH ×2 (09:40→21:50)
[2020-05-08] MEDS: CHOLECALCIFEROL (VITD3) 2,000 UNIT CAP/TAB PO SCH (09:41)
[2020-05-08] MEDS: MULTIPLE VITAMIN TAB PO SCH (09:41)
[2020-05-08] MEDS: BUDESONIDE (INHALATION) 180 MCG IH IN SCH ×2 (09:53→19:14)
[2020-05-08] MEDS: SODIUM CHLORIDE 0.9% 1,000 ML IV SCH (11:18)
[2020-05-08] MEDS: ALBUTEROL SULF HFA 90MCG INH 200DOSE IN PRN ×2 (11:45→19:14)
[2020-05-08 16:00] VITALS: BP 100/61
[2020-05-09] VITALS: BP 109/69
[2020-05-09] MEDS: SODIUM CHLORIDE 0.9% 1,000 ML IV SCH ×2 (03:30→20:15)
[2020-05-09] MEDS: SODIUM CHLOR 0.9% PF (SALINE LOCK) 10ML VIAL/SYR IV SCH ×3 (05:46→21:55)
[2020-05-09] MEDS: metroNIDAZOLE 500MG/100ML 100 ML IV SCH ×3 (05:46→21:55)
[2020-05-09] MEDS: VANCOMYCIN HCL 125MG/5ML ORAL SOL PO SCH ×4 (05:47→21:55)
[2020-05-09] MEDS: BUDESONIDE (INHALATION) 180 MCG IH IN SCH ×2 (06:03→18:24)
[2020-05-09] MEDS: ALBUTEROL SULF HFA 90MCG INH 200DOSE IN PRN ×2 (06:03→20:03)
[2020-05-09 06:34] LABS: Basophils # (auto) 0.1 10 ^3/uL (0-0.2); Basophils % (auto) 0.7 % (0.0-2.0); Eosinophils # (auto) 0.5 10 ^3/uL (0-0.8); Eosinophils % (auto) 4.6 % (0.0-7.0); Hemoglobin 12.9 g/dL (13.5-17.5); Lymphocytes # (auto) 2.2 10 ^3/uL (0.4-5.4); Lymphocytes % (auto) 22.1 % (10.0-50.0); Mean Corpuscular Hemoglobin 31.1 pg (28.0-32.0); Mean Corpuscular Hgb Conc. 33.9 g/dL (32.0-36.0); Mean Corpuscular Volume 91.8 fL (80.0-100.0); Monocytes # (auto) 0.8 10 ^3/uL (0-1.3); Monocytes % (auto) 8.5 % (0.0-12.0); Neutrophils # (auto) 6.4 10 ^3/uL (1.6-8.6); Neutrophils % (auto) 64.1 % (37.0-80.0); Nucleated Red Blood Cells % 0.1 %; Red Blood Cells 4.14 10^6/uL (4.5-5.90); Red Cell Distribution Width 14.1 % (11.8-14.3)
[2020-05-09 07:05] LABS: Albumin 2.3 g/dL (3.4-5.0); Magnesium 2.1 mg/dL (1.6-2.6); Potassium 4.2 mmol/L (3.5-5.1)
[2020-05-09 07:11] LABS: BUN/Creatinine Ratio 14.6; Bilirubin, Total 0.4 mg/dL (0.2-1.0); Calcium 8.4 mg/dL (8.5-10.1); Total Protein 6.3 g/dL (6.4-8.2)
[2020-05-09 08:00] VITALS: BP 111/66
[2020-05-09] MEDS: MULTIPLE VITAMIN TAB PO SCH (09:26)
[2020-05-09] MEDS: ASCORBIC ACID 1,000 MG TAB PO SCH (09:26)
[2020-05-09] MEDS: ZINC SULFATE 220mg CAP or TAB PO SCH (09:26)
[2020-05-09] MEDS: FLORASTOR (S. BOULARDII) 250 MG CAP PO SCH ×2 (09:26→21:56)
[2020-05-09] MEDS: FAMOTIDINE (10MG/ML) 2ML VL IV SCH ×2 (09:27→21:55)
[2020-05-09] MEDS: ENOXAPARIN SOD 40 MG/0.4 ML SYRINGE SC SCH ×2 (10:05→21:56)
[2020-05-09] MEDS: CHOLECALCIFEROL (VITD3) 2,000 UNIT CAP/TAB PO SCH (10:05)
[2020-05-09 16:00] VITALS: BP 103/64
[2020-05-10] VITALS: BP 103/62
[2020-05-10] MEDS: BUDESONIDE (INHALATION) 180 MCG IH IN SCH ×2 (06:02→19:19)
[2020-05-10] MEDS: ALBUTEROL SULF HFA 90MCG INH 200DOSE IN PRN ×2 (06:02→19:19)
[2020-05-10] MEDS: SODIUM CHLOR 0.9% PF (SALINE LOCK) 10ML VIAL/SYR IV SCH ×3 (06:09→21:45)
[2020-05-10] MEDS: metroNIDAZOLE 500MG/100ML 100 ML IV SCH ×3 (06:09→21:45)
[2020-05-10] MEDS: VANCOMYCIN HCL 125MG/5ML ORAL SOL PO SCH ×4 (06:10→21:45)
[2020-05-10 08:00] VITALS: BP 107/60
[2020-05-10] MEDS: ZINC SULFATE 220mg CAP or TAB PO SCH (09:54)
[2020-05-10] MEDS: MULTIPLE VITAMIN TAB PO SCH (09:54)
[2020-05-10] MEDS: FAMOTIDINE (10MG/ML) 2ML VL IV SCH ×2 (09:54→21:45)
[2020-05-10] MEDS: ASCORBIC ACID 1,000 MG TAB PO SCH (09:54)
[2020-05-10] MEDS: FLORASTOR (S. BOULARDII) 250 MG CAP PO SCH ×2 (09:54→21:57)
[2020-05-10] MEDS: ENOXAPARIN SOD 40 MG/0.4 ML SYRINGE SC SCH ×2 (09:55→21:57)
[2020-05-10] MEDS: CHOLECALCIFEROL (VITD3) 2,000 UNIT CAP/TAB PO SCH (09:55)
[2020-05-10] MEDS: SODIUM CHLORIDE 0.9% 1,000 ML IV SCH (12:45)
[2020-05-10] MEDS: ERGOCALCIFEROL 50,000 UNIT(1.25MG) CAP PO SCH (14:09)
[2020-05-10 16:00] VITALS: BP 142/60
[2020-05-10 17:38] LABS: Cholesterol 105 mg/dL (< 200)
[2020-05-10 17:41] LABS: HDL Cholesterol 41 mg/dL (40-59); LDL Cholesterol 52 mg/dL (< 100); Triglycerides 79 mg/dL (< 150)
[2020-05-11] VITALS: BP 102/74
[2020-05-11] MEDS: SODIUM CHLOR 0.9% PF (SALINE LOCK) 10ML VIAL/SYR IV SCH ×3 (05:06→21:59)
[2020-05-11] MEDS: VANCOMYCIN HCL 125MG/5ML ORAL SOL PO SCH ×4 (05:06→21:59)
[2020-05-11] MEDS: metroNIDAZOLE 500MG/100ML 100 ML IV SCH ×3 (05:06→21:59)
[2020-05-11] MEDS: BUDESONIDE (INHALATION) 180 MCG IH IN SCH ×2 (06:21→19:15)
[2020-05-11] MEDS: ALBUTEROL SULF HFA 90MCG INH 200DOSE IN PRN ×2 (06:22→19:15)
[2020-05-11 08:26] VITALS: BP 102/59
[2020-05-11] MEDS: SODIUM CHLORIDE 0.9% 1,000 ML IV SCH ×2 (09:37→21:59)
[2020-05-11] MEDS: MULTIPLE VITAMIN TAB PO SCH (09:38)
[2020-05-11] MEDS: FAMOTIDINE (10MG/ML) 2ML VL IV SCH ×2 (09:38→21:59)
[2020-05-11] MEDS: ZINC SULFATE 220mg CAP or TAB PO SCH (09:38)
[2020-05-11] MEDS: CHOLECALCIFEROL (VITD3) 2,000 UNIT CAP/TAB PO SCH (09:38)
[2020-05-11] MEDS: FLORASTOR (S. BOULARDII) 250 MG CAP PO SCH ×2 (09:38→21:59)
[2020-05-11] MEDS: ENOXAPARIN SOD 40 MG/0.4 ML SYRINGE SC SCH (09:38)
[2020-05-11] MEDS: ASCORBIC ACID 1,000 MG TAB PO SCH (09:38)
[2020-05-11 16:01] VITALS: BP 105/57
[2020-05-12] VITALS: BP 109/69
[2020-05-12] MEDS: VANCOMYCIN HCL 125MG/5ML ORAL SOL PO SCH ×4 (06:07→22:44)
[2020-05-12] MEDS: SODIUM CHLOR 0.9% PF (SALINE LOCK) 10ML VIAL/SYR IV SCH ×3 (06:07→22:44)
[2020-05-12] MEDS: metroNIDAZOLE 500MG/100ML 100 ML IV SCH ×3 (06:07→22:43)
[2020-05-12] MEDS: ALBUTEROL SULF HFA 90MCG INH 200DOSE IN PRN ×2 (06:59→20:28)
[2020-05-12] MEDS: BUDESONIDE (INHALATION) 180 MCG IH IN SCH ×2 (06:59→20:28)
[2020-05-12 08:00] VITALS: BP 103/55
[2020-05-12] MEDS: FAMOTIDINE (10MG/ML) 2ML VL IV SCH ×2 (10:22→22:43)
[2020-05-12] MEDS: ZINC SULFATE 220mg CAP or TAB PO SCH (10:22)
[2020-05-12] MEDS: ASCORBIC ACID 1,000 MG TAB PO SCH (10:23)
[2020-05-12] MEDS: MULTIPLE VITAMIN TAB PO SCH (10:23)
[2020-05-12] MEDS: CHOLECALCIFEROL (VITD3) 2,000 UNIT CAP/TAB PO SCH (10:23)
[2020-05-12] MEDS: FLORASTOR (S. BOULARDII) 250 MG CAP PO SCH ×2 (10:23→22:45)
[2020-05-12 16:00] VITALS: BP 119/58
[2020-05-12] MEDS: SODIUM CHLORIDE 0.9% 1,000 ML IV SCH (16:32)
[2020-05-13] VITALS: BP 104/64
[2020-05-13] MEDS: SODIUM CHLOR 0.9% PF (SALINE LOCK) 10ML VIAL/SYR IV SCH ×3 (06:20→22:06)
[2020-05-13] MEDS: metroNIDAZOLE 500MG/100ML 100 ML IV SCH ×3 (06:20→22:05)
[2020-05-13] MEDS: VANCOMYCIN HCL 125MG/5ML ORAL SOL PO SCH ×4 (06:21→22:06)
[2020-05-13 08:00] VITALS: BP 110/62
[2020-05-13] MEDS: ALBUTEROL SULF HFA 90MCG INH 200DOSE IN PRN ×2 (08:30→20:54)
[2020-05-13] MEDS: BUDESONIDE (INHALATION) 180 MCG IH IN SCH ×2 (08:30→20:54)
[2020-05-13] MEDS: SODIUM CHLORIDE 0.9% 1,000 ML IV SCH (09:05)
[2020-05-13] MEDS: FAMOTIDINE (10MG/ML) 2ML VL IV SCH ×2 (09:55→22:05)
[2020-05-13] MEDS: FLORASTOR (S. BOULARDII) 250 MG CAP PO SCH ×2 (09:56→22:06)
[2020-05-13] MEDS: MULTIPLE VITAMIN TAB PO SCH (09:56)
[2020-05-13] MEDS: ZINC SULFATE 220mg CAP or TAB PO SCH (09:56)
[2020-05-13] MEDS: CHOLECALCIFEROL (VITD3) 2,000 UNIT CAP/TAB PO SCH (09:56)
[2020-05-13] MEDS: ASCORBIC ACID 1,000 MG TAB PO SCH (09:56)
[2020-05-13 16:12] VITALS: BP 101/65
[2020-05-14] VITALS: BP_SYST 106; BP_SYST 99; BP_DIAS 56; BP_DIAS 68
[2020-05-14] MEDS: SODIUM CHLOR 0.9% PF (SALINE LOCK) 10ML VIAL/SYR IV SCH ×3 (06:03→22:14)
[2020-05-14] MEDS: metroNIDAZOLE 500MG/100ML 100 ML IV SCH ×3 (06:03→22:40)
[2020-05-14] MEDS: VANCOMYCIN HCL 125MG/5ML ORAL SOL PO SCH ×4 (06:03→22:31)
[2020-05-14 08:00] VITALS: BP 98/56
[2020-05-14] MEDS: BUDESONIDE (INHALATION) 180 MCG IH IN SCH ×2 (10:18→18:53)
[2020-05-14] MEDS: ALBUTEROL SULF HFA 90MCG INH 200DOSE IN PRN ×2 (10:18→20:10)
[2020-05-14] MEDS: ZINC SULFATE 220mg CAP or TAB PO SCH (10:44)
[2020-05-14] MEDS: FAMOTIDINE (10MG/ML) 2ML VL IV SCH ×2 (10:44→22:26)
[2020-05-14] MEDS: MULTIPLE VITAMIN TAB PO SCH (10:44)
[2020-05-14] MEDS: ASCORBIC ACID 1,000 MG TAB PO SCH (10:44)
[2020-05-14] MEDS: CHOLECALCIFEROL (VITD3) 2,000 UNIT CAP/TAB PO SCH (10:44)
[2020-05-14] MEDS: FLORASTOR (S. BOULARDII) 250 MG CAP PO SCH ×2 (12:32→22:26)
[2020-05-14 16:00] VITALS: BP 95/58
[2020-05-15 00:12] VITALS: BP 99/56
[2020-05-15] MEDS: SODIUM CHLOR 0.9% PF (SALINE LOCK) 10ML VIAL/SYR IV SCH ×2 (06:00→14:22)
[2020-05-15] MEDS: VANCOMYCIN HCL 125MG/5ML ORAL SOL PO SCH ×3 (06:30→17:28)
[2020-05-15] MEDS: metroNIDAZOLE 500MG/100ML 100 ML IV SCH ×2 (06:30→14:22)
[2020-05-15] MEDS: BUDESONIDE (INHALATION) 180 MCG IH IN SCH ×2 (07:45→18:22)
[2020-05-15] MEDS: ALBUTEROL SULF HFA 90MCG INH 200DOSE IN PRN ×2 (07:45→18:22)
[2020-05-15 08:00] VITALS: BP 106/62
[2020-05-15] MEDS: MULTIPLE VITAMIN TAB PO SCH (09:54)
[2020-05-15] MEDS: ZINC SULFATE 220mg CAP or TAB PO SCH (09:54)
[2020-05-15] MEDS: FAMOTIDINE (10MG/ML) 2ML VL IV SCH (09:54)
[2020-05-15] MEDS: ASCORBIC ACID 1,000 MG TAB PO SCH (09:54)
[2020-05-15] MEDS: CHOLECALCIFEROL (VITD3) 2,000 UNIT CAP/TAB PO SCH (09:55)
[2020-05-15] MEDS: FLORASTOR (S. BOULARDII) 250 MG CAP PO SCH (10:34)
[2020-05-15 16:00] VITALS: BP 111/63
[2020-05-15] MEDS ORDERED: POTA10TA51 PO (17:22)
[2020-05-15] MEDS ORDERED: ASPI81CH59 PO (17:22)
[2020-05-15] MEDS ORDERED: FAMO-12 PO (17:22)
[2020-05-15] MEDS ORDERED: ATOR20TA50 PO (17:22)
[2020-05-15] MEDS ORDERED: ZINC100T5 PO (17:22)
[2020-05-15] MEDS ORDERED: DOCU100C10 PO (17:22)
[2020-05-15] MEDS ORDERED: SACC250C PO (17:22)
[2020-05-15] MEDS ORDERED: METR500T PO (17:22)
[2020-05-15] MEDS ORDERED: CHOL1CAP47 PO (17:22)
[2020-05-15] MEDS ORDERED: NUTR-559 PO (17:24)
== END 2020-05-15 20:20 | disposition home or self-care (01) | DRG 137 ==
LOC: ER 16:38 → EDBD 16:38 → OVERFLOW 16:39 → TELE-E-ADS 04-26 23:10 → TELE-EAST 05-03 10:52
PROVIDERS: ADMIT Nurse Practitioner Family; ATTEND Internal Medicine
PROC: XW033E5 Introduction of Remdesivir Anti-infective into Peripheral Vein, Percutaneous Approach, New Technology Group 5 (ICD-10-PCS; principal; 2020-04-25)
PROC: XW13325 Transfusion of Convalescent Plasma (Nonautologous) into Peripheral Vein, Percutaneous Approach, New Technology Group 5 (ICD-10-PCS; 2020-04-25)
DX: U07.1 COVID-19 (principal); E43 Unspecified severe protein-calorie malnutrition; J12.82 Pneumonia due to coronavirus disease 2019; J96.01 Acute respiratory failure with hypoxia; N17.0 Acute kidney failure with tubular necrosis; A04.72 Enterocolitis due to Clostridium difficile, not specified as recurrent; D68.59 Other primary thrombophilia; E55.9 Vitamin D deficiency, unspecified; R04.0 Epistaxis; R73.03 Prediabetes; Z68.25 Body mass index [BMI] 25.0-25.9, adult; Z82.49 Family history of ischemic heart disease and other diseases of the circulatory system
CPT/HCPCS: 36415; 71045; 71275; 74018; 80048; 80053; 80061; 81001; 82270; 82306; 82728; 83036; 83605; 83615; 83735; 83880; 84439; 84443; 84484; 85025; 85379; 85610; 85652; 85730; 86141; 86850; 86900; 86901; 87040; 87045; 87426; 87493; 93005; 93306; 93970; 94640; G0378; J0696; J1100; J3490